=== PATIENT | male | born 1950 | race Asian ===

== ENCOUNTER → 2021-01-12 | Outpatient (CLI) | payer MEDICARE ==
[~2021-01-12] MED LIST: CHOL2000 PO; MULTIVITAMIN PACK PO; OXYC-112 PO; OXYM10TA PO; ROSU10TA72 PO; TELM20 PO
== END | disposition home or self-care (01) ==
LOC: RADPV 13:07
PROVIDERS: ATTEND Legal Medicine
DX: R60.0 Localized edema (principal); I73.9 Peripheral vascular disease, unspecified
CPT/HCPCS: 93970

== ENCOUNTER → 2021-02-01 | Outpatient (CLI) | payer MEDICARE | END | disposition home or self-care (01) | LOC: RADMN 13:30 | PROVIDERS: ATTEND Legal Medicine | DX: M43.12 Spondylolisthesis, cervical region (principal); M48.03 Spinal stenosis, cervicothoracic region; M54.13 Radiculopathy, cervicothoracic region; M54.10 Radiculopathy, site unspecified | CPT/HCPCS: 70490 ==

== ENCOUNTER 2023-06-12 09:58 | Emergency (ER) | payer MEDICARE ==
[~2023-06-12] VITALS: Ht 175.3 cm; Wt 90.9 kg
[2023-06-12 10:01] VITALS: TEMP 97.9
[2023-06-12] MEDS ORDERED: LOSA-382 PO (10:07)
[2023-06-12 10:21] VITALS: BP 156/92; PULSE 78; RESP 18
== END 2023-06-12 10:25 | disposition home or self-care (01) ==
LOC: EMS 09:58
DX: I10 Essential (primary) hypertension (principal); G89.29 Other chronic pain; M54.9 Dorsalgia, unspecified; F17.210 Nicotine dependence, cigarettes, uncomplicated; Z90.49 Acquired absence of other specified parts of digestive tract; Z98.890 Other specified postprocedural states; Z96.659 Presence of unspecified artificial knee joint
CPT/HCPCS: 99282; Z7502

== ENCOUNTER 2024-12-08 14:31 | Emergency (ER) | payer MEDICARE ==
[~2024-12-08] VITALS: Ht 176.5 cm; Wt 104.5 kg
[~2024-12-08 14:31] MED LIST changes: +LOSA-382 PO; -OXYC-112 PO; -OXYM10TA PO; -TELM20 PO
[2024-12-08 14:37] VITALS: TEMP 97.5
[2024-12-08] MEDS: PERTUSS(ACELL),DIPH,TET/PF 0.5 ML SYRINGE [ADULT] IM. ONE (15:55)
[2024-12-08 16:27] VITALS: BP 121/69; PULSE 71; RESP 20; O2SAT 96
== END 2024-12-08 16:34 | disposition home or self-care (01) ==
LOC: EMS 14:31
DX: S01.81XA Laceration without foreign body of other part of head, initial encounter (principal); I10 Essential (primary) hypertension; G89.29 Other chronic pain; F17.210 Nicotine dependence, cigarettes, uncomplicated; Z90.49 Acquired absence of other specified parts of digestive tract; Z79.899 Other long term (current) drug therapy; Z96.653 Presence of artificial knee joint, bilateral; W01.0XXA Fall on same level from slipping, tripping and stumbling without subsequent striking against object, initial encounter; Y93.89 Activity, other specified; Y92.89 Other specified places as the place of occurrence of the external cause; Y99.8 Other external cause status
CPT/HCPCS: 70450; 72125; 90471; 90715; 99285